=== PATIENT | male | born 1965 | race Caucasian/White ===

== ENCOUNTER 2016-09-25 14:54 | Emergency (ER) | payer BC ==
[~2016-09-25] VITALS: Ht 170.2 cm; Wt 73.5 kg
[2016-09-25 15:16] VITALS: BP_SYST 165
--- NOTE | 2016-09-25 15:20 | NUR ---
Patient to [facility] for evaluation. Side rails up. Report given to KIKO Mills.
--- NOTE | 2016-09-25 15:22 | NUR ---
ER in triage room examining patient.
--- NOTE | 2016-09-25 15:25 | NUR ---
Pt came into the ER in stable condition. Pt c/o sore throat 11/28 since this morning and pain increases when swallowing. Pt denies any medical hx. Pt denies taking any meds for pain. -sob -chest pain. No acute distress noted at this time, will continue to monitor
[2016-09-25] MEDS ORDERED: DEXAMETHASONE SOD PHOSPHATE 10 MG/ML VIAL IM ONE (15:30)
[2016-09-25] MEDS ORDERED: PENICILLIN G BENZATHINE 1.2 MMU/2 ML SYR IM ONE (15:30)
[2016-09-25] MEDS ORDERED: KETOROLAC TROMETHAMINE 60 MG/2 ML VIAL IM ONE (15:30)
--- NOTE | 2016-09-25 15:37 | NUR ---
PATIENT AMBULATED TO BED 8
[2016-09-25 15:47] VITALS: BP_SYST 141
== END 2016-09-25 15:47 | disposition home or self-care (01) ==
LOC: SED 14:54
DX: J03.90 Acute tonsillitis, unspecified (principal); R03.0 Elevated blood-pressure reading, without diagnosis of hypertension
CPT/HCPCS: 96372; 99284; J0561; J1100; J1885